=== PATIENT | male | born 1995 | race Caucasian/White ===

== ENCOUNTER 2025-11-10 18:24 | Emergency (ER) | payer OTHER ==
[~2025-11-10] VITALS: Ht 177.8 cm; Wt 75.0 kg
[2025-11-10 18:37] LABS: COVID AG,FIA SOURCE NASAL SWAB
[2025-11-10 18:43] VITALS: BP 125/71; PULSE 86; RESP 18; TEMP 98.4; O2SAT 97
[2025-11-10 18:48] LABS: SARS-COV2 (COVID) ANTIGEN,FIA Negative (Negative)
[2025-11-10 19:04] LABS: INFLUENZA TYPE A NEGATIVE FOR TYPE A (NEGATIVE); INFLUENZA TYPE B NEGATIVE FOR TYPE B (NEGATIVE)
[2025-11-10] MEDS: BUPRENORPHINE HCL/NALOXONE HCL 8-2 MG SUBLINGUAL TABLET SL ONE (19:31)
== END 2025-11-10 19:39 | disposition home or self-care (01) ==
LOC: EMS 18:24
DX: F11.23 Opioid dependence with withdrawal (principal); F17.210 Nicotine dependence, cigarettes, uncomplicated; Z20.822 Contact with and (suspected) exposure to COVID-19
CPT/HCPCS: 87804; 99283